=== PATIENT | male | born 1980 | race Caucasian/White ===

== ENCOUNTER 2020-07-15 01:36 | Emergency (ER) | payer OTHER ==
[~2020-07-15] VITALS: Ht 157.5 cm; Wt 78.0 kg
[~2020-07-15 01:36] MED LIST: METF-162 PO
[2020-07-15] MEDS ORDERED: ONDANSETRON 2MG/ML, 2ML ONE (02:00)
[2020-07-15] MEDS ORDERED: ONDANSETRON 2MG/ML, 2ML IVPush ONE (02:00)
[2020-07-15] MEDS ORDERED: KETOROLAC 30 MG/1 ML ONE (02:00)
[2020-07-15] MEDS ORDERED: MORPHINE SULFATE 4 MG/ML, 1ML ONE ×2 (02:00→03:03)
[2020-07-15] MEDS ORDERED: KETOROLAC 30 MG/1 ML IVPush ONE (02:00)
[2020-07-15] MEDS: MORPHINE SULFATE 4 MG/ML, 1ML IVPush PRN ×2 (02:16→03:05)
[2020-07-15 02:47] LABS: MICROSCOPIC INDICATED
[2020-07-15 02:48] LABS: ALBUMIN 4.3 g/dL (3.4-5.0); ANION GAP 6 mmol/L (5-15); BASOPHILS % (AUTO) 1 % (0-1); CHLORIDE 110 mmol/L (98-107); CREATININE 0.89 mg/dL (0.7-1.3); EOSINOPHILS % (AUTO) 2 % (1-7); LYMPHOCYTES % (AUTO) 34 % (22-44); MEAN CORPUSCULAR HEMOGLOBIN 33.2 pg (27.5-34.5); MEAN CORPUSCULAR HGB CONC 34.6 g/dL (33.2-36.2); MEAN PLATELET VOLUME 7.6 fL (7.4-10.4); MONOCYTES % (AUTO) 7 % (2-9); NEUTROPHILS % (AUTO) 57 % (42-75); PLATELET COUNT 314 x10^3/uL (130-400); RED BLOOD COUNT 4.66 x10^6/uL (4.38-5.82)
--- NOTE | 2020-07-15 03:27 | NUR ---
PT "STATES PAIN CAME ON AT MIDNIGHT 1010 PAIN." NEVER HAD THIS PAIN BEFORE. STATES HE VOMITED ONCE IN THE LOBBY.
[2020-07-15 03:42] VITALS: BP 106/64
--- NOTE | 2020-07-15 04:16 | NUR ---
Patient given discharge instructions and they have confirmed that they understand the instructions. Patient ambulatory with steady gait. No quesiton at time at discharge.
== END 2020-07-15 04:13 | disposition home or self-care (01) ==
LOC: ED 04:01
DX: N20.2 Calculus of kidney with calculus of ureter (principal)
CPT/HCPCS: 36415; 74176; 80048; 81001; 82040; 85025; 96374; 96375; 96376; 99284; J1885; J2270; J2405

== ENCOUNTER 2020-10-30 21:14 | Inpatient (IN) | payer OTHER ==
[~2020-10-30] VITALS: Ht 157.5 cm; Wt 73.4 kg
[2020-10-30] MEDS ORDERED: DEXAMETHASONE 4 MG/ML, 1ML PO ONE (21:30)
--- NOTE | 2020-10-30 22:52 | NUR ---
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
[2020-10-30 23:15] LABS: BASOPHILS % (AUTO) 1 % (0-1); EOSINOPHILS % (AUTO) 0 % (1-7); LYMPHOCYTES % (AUTO) 20 % (22-44); MEAN CORPUSCULAR HEMOGLOBIN 33.8 pg (27.5-34.5); MEAN CORPUSCULAR HGB CONC 35.6 g/dL (33.2-36.2); MEAN PLATELET VOLUME 7.4 fL (7.4-10.4); MONOCYTES % (AUTO) 8 % (2-9); NEUTROPHILS % (AUTO) 71 % (42-75); PLATELET COUNT 200 x10^3/uL (130-400); RED BLOOD COUNT 4.82 x10^6/uL (4.38-5.82); RED CELL DISTRIBUTION WIDTH 12.9 % (9.4-14.8)
[2020-10-30] MEDS ORDERED: DEXAMETHASONE 4 MG/ML, 5ML ONE (23:15)
[2020-10-30] MEDS ORDERED: ACETAMINOPHEN 500 MG TABLET ONE (23:16)
--- NOTE | 2020-10-30 23:21 | NUR ---
PT AMBULATED HALLWAY WITHOUT OXYGEN. OXYGEN LEVEL 88%. WHEN PT IS SITTING ON GURNEY, OXYGEN LEVEL 90%. PT CONNECTED TO ALL MONITORING. CALL LIGHT IN REACH. MEDS ADMIN PER MAY.
[2020-10-30 23:22] LABS: CHLORIDE 101 mmol/L (98-107)
[2020-10-30 23:26] LABS: ALBUMIN 3.2 g/dL (3.4-5.0); ANION GAP 9 mmol/L (5-15); CALCIUM 8.6 mg/dL (8.5-10.1); CREATININE 0.69 mg/dL (0.7-1.3)
[2020-10-30] MEDS ORDERED: ACETAMINOPHEN 500 MG TABLET PO ONE (23:30)
--- NOTE | 2020-10-30 23:31 | NUR ---
ALL RESULTS ARE BACK AT THIS TIME. CHART UP FOR RECHECK.
--- NOTE | 2020-10-31 00:11 | NUR ---
ALMAS HAS BEED AT BEDSIDE TO UPDATE PT ON POC. PT TO BE DC WITH HOME OXYGEN.
--- NOTE | 2020-10-31 00:35 | NUR ---
called [facility] [employer] and dme to set up home 02. will hear call back from tech in 15 min
--- NOTE | 2020-10-31 01:39 | NUR ---
PT RESTING COMFORTABLY ON GURNEY. NO RESP DISTRESS. SPOUSE AT BEDSIDE. AWAITING HOME OXYGEN.
--- NOTE | 2020-10-31 01:49 | NUR ---
RECIEVED REPORT FROM HEIDI ANNE.
--- NOTE | 2020-10-31 01:56 | NUR ---
PROVIDER REPORTED O2 SATURATIONS AT 86%.
[2020-10-31] MEDS ORDERED: CEFTRIAXONE 1,000 MG in DEXTROSE 5% 50 ML IVPB ONE (02:00)
[2020-10-31] MEDS ORDERED: DOXYCYCLINE 100 MG in DEXTROSE 5% 250 ML IV SCH (02:00)
--- NOTE | 2020-10-31 02:44 | NUR ---
Pt to be admitted to MEDICAL, room 365. Report called to JANETH GORDON.
[2020-10-31 03:04] VITALS: BP 102/67
[2020-10-31] MEDS ORDERED: LABETALOL 5MG/ML, 20ML IVPush PRN (05:00)
[2020-10-31] MEDS ORDERED: ONDANSETRON 2MG/ML, 2ML IVPush PRN (05:00)
[2020-10-31] MEDS ORDERED: POLYETHYLENE GLYCOL 17 GM PACKET PO PRN (05:00)
[2020-10-31] MEDS ORDERED: PHARMACY MAY ADJ FOR RENAL FX MC PRN (05:00)
[2020-10-31] MEDS: ENOXAPARIN 40 MG/0.4 ML SQ SCH (05:08)
[2020-10-31] MEDS: DEXAMETHASONE 4 MG/ML, 1ML IVPush SCH ×4 (05:08→23:33)
[2020-10-31 07:24] LABS: BASOPHILS % (AUTO) 0 % (0-1); EOSINOPHILS % (AUTO) 0 % (1-7); LYMPHOCYTES % (AUTO) 19 % (22-44); MEAN CORPUSCULAR HEMOGLOBIN 33.2 pg (27.5-34.5); MEAN CORPUSCULAR HGB CONC 34.4 g/dL (33.2-36.2); MEAN PLATELET VOLUME 7.1 fL (7.4-10.4); MONOCYTES % (AUTO) 5 % (2-9); NEUTROPHILS % (AUTO) 76 % (42-75); PLATELET COUNT 197 x10^3/uL (130-400); RED BLOOD COUNT 5.12 x10^6/uL (4.38-5.82); RED CELL DISTRIBUTION WIDTH 12.9 % (9.4-14.8)
[2020-10-31 07:31] LABS: ANION GAP 5 mmol/L (5-15); CALCIUM 9.6 mg/dL (8.5-10.1); CHLORIDE 104 mmol/L (98-107)
[2020-10-31 07:33] LABS: CREATININE 0.72 mg/dL (0.7-1.3)
[2020-10-31 08:33] VITALS: BP 118/75
[2020-10-31] MEDS: ASCORBIC ACID 500 MG TABLET PO SCH ×2 (08:35→19:41)
[2020-10-31] MEDS: ZINC SULFATE 220 MG CAPSULE PO SCH (08:35)
[2020-10-31] MEDS: FAMOTIDINE 20 MG TABLET PO SCH ×2 (08:35→19:41)
[2020-10-31 11:16] VITALS: BP 116/75
[2020-10-31 14:00] VITALS: BP 117/76
[2020-10-31 19:32] VITALS: BP 121/77
[2020-10-31 23:30] VITALS: BP 113/70
[2020-10-31] MEDS: BENZONATATE 100 MG CAPSULE PO PRN (23:37)
[2020-11-01] MEDS: MELATONIN 5 MG TABLET PO PRN (03:17)
[2020-11-01] MEDS: DEXAMETHASONE 4 MG/ML, 1ML IVPush SCH ×4 (04:25→23:47)
[2020-11-01] MEDS: ENOXAPARIN 40 MG/0.4 ML SQ SCH (04:26)
[2020-11-01] MEDS: CEFTRIAXONE 1,000 MG in DEXTROSE 5% 50 ML IVPB SCH (04:26)
[2020-11-01 07:58] VITALS: BP 117/72
[2020-11-01 08:10] LABS: BASOPHILS % (AUTO) 0 % (0-1); EOSINOPHILS % (AUTO) 0 % (1-7); LYMPHOCYTES % (AUTO) 6 % (22-44); MEAN CORPUSCULAR HEMOGLOBIN 32.8 pg (27.5-34.5); MEAN CORPUSCULAR HGB CONC 34.2 g/dL (33.2-36.2); MEAN PLATELET VOLUME 7.4 fL (7.4-10.4); MONOCYTES % (AUTO) 6 % (2-9); NEUTROPHILS % (AUTO) 88 % (42-75); PLATELET COUNT 272 x10^3/uL (130-400); RED BLOOD COUNT 4.73 x10^6/uL (4.38-5.82); RED CELL DISTRIBUTION WIDTH 12.6 % (9.4-14.8)
[2020-11-01 08:24] LABS: ANION GAP 8 mmol/L (5-15); CALCIUM 9.1 mg/dL (8.5-10.1); CHLORIDE 104 mmol/L (98-107)
[2020-11-01 08:35] LABS: ALANINE AMINOTRANSFERASE 49 U/L (12-78); ALKALINE PHOSPHATASE 61 U/L (45-117); BILIRUBIN,TOTAL 0.3 mg/dL (0.2-1.0); CREATININE 0.76 mg/dL (0.7-1.3); TOTAL PROTEIN 7.4 g/dL (6.4-8.2)
[2020-11-01] MEDS: ASCORBIC ACID 500 MG TABLET PO SCH ×2 (09:23→19:30)
[2020-11-01] MEDS: FAMOTIDINE 20 MG TABLET PO SCH ×2 (09:23→19:30)
[2020-11-01] MEDS: ZINC SULFATE 220 MG CAPSULE PO SCH (09:23)
[2020-11-01] MEDS: BENZONATATE 100 MG CAPSULE PO PRN ×2 (12:28→20:07)
[2020-11-01 12:53] VITALS: BP 120/79
[2020-11-01 19:22] VITALS: BP 115/73
[2020-11-01 23:49] VITALS: BP 127/73
[2020-11-02 00:20] VITALS: BP 127/73
[2020-11-02] MEDS: DEXAMETHASONE 4 MG/ML, 1ML IVPush SCH ×3 (04:16→17:13)
[2020-11-02] MEDS: CEFTRIAXONE 1,000 MG in DEXTROSE 5% 50 ML IVPB SCH (04:16)
[2020-11-02] MEDS: BENZONATATE 100 MG CAPSULE PO PRN ×3 (04:16→19:55)
[2020-11-02] MEDS: ENOXAPARIN 40 MG/0.4 ML SQ SCH (04:16)
[2020-11-02 05:49] LABS: MEAN CORPUSCULAR HEMOGLOBIN 33.3 pg (27.5-34.5); MEAN CORPUSCULAR HGB CONC 34.6 g/dL (33.2-36.2); MEAN PLATELET VOLUME 7.5 fL (7.4-10.4); PLATELET COUNT 320 x10^3/uL (130-400); RED BLOOD COUNT 4.56 x10^6/uL (4.38-5.82); RED CELL DISTRIBUTION WIDTH 12.9 % (9.4-14.8)
[2020-11-02 06:19] LABS: ALBUMIN 2.7 g/dL (3.4-5.0); ANION GAP 5 mmol/L (5-15); CHLORIDE 104 mmol/L (98-107)
[2020-11-02 06:21] LABS: <PLATELET ESTIMATE> ADEQUATE; <PLT MORPHOLOGY> NORMAL PLT MORPH; ANISOCYTOSIS 1+; BAND#(MANUAL) 0.18 x10^3/uL; BANDS%(MANUAL) 1 % (0-7); LYMPH#(MANUAL) 1.27 x10^3/uL (1-3.4); LYMPHS% (MANUAL) 7 % (22-44); MONOS#(MANUAL) 0.91 x10^3/uL (0.3-2.7); MONOS% (MANUAL) 5 % (2-9); SEG#(MANUAL) 15.75 x10^3/uL (1.8-6.8); SEGS% (MANUAL) 87 % (42-75); TEAR DROPS 1+
[2020-11-02 06:22] LABS: ALANINE AMINOTRANSFERASE 52 U/L (12-78); ALKALINE PHOSPHATASE 59 U/L (45-117); BILIRUBIN,TOTAL 0.4 mg/dL (0.2-1.0); CREATININE 0.78 mg/dL (0.7-1.3); TOTAL PROTEIN 7.4 g/dL (6.4-8.2)
[2020-11-02 08:43] VITALS: BP 109/67
[2020-11-02] MEDS: ASCORBIC ACID 500 MG TABLET PO SCH ×2 (08:46→19:41)
[2020-11-02] MEDS: ZINC SULFATE 220 MG CAPSULE PO SCH (08:46)
[2020-11-02] MEDS: FAMOTIDINE 20 MG TABLET PO SCH ×2 (08:46→19:41)
[2020-11-02] MEDS: ACETAMINOPHEN 325 MG TABLET PO PRN (10:34)
[2020-11-02 13:51] VITALS: BP 128/81
[2020-11-02 19:06] VITALS: BP 114/68
[2020-11-03] MEDS: DEXAMETHASONE 4 MG/ML, 1ML IVPush SCH ×3 (00:15→08:18)
[2020-11-03 00:50] VITALS: BP 118/73
[2020-11-03] MEDS: CEFTRIAXONE 1,000 MG in DEXTROSE 5% 50 ML IVPB SCH (03:52)
[2020-11-03] MEDS: ENOXAPARIN 40 MG/0.4 ML SQ SCH (05:51)
[2020-11-03 06:27] LABS: BASOPHILS % (AUTO) 0 % (0-1); EOSINOPHILS % (AUTO) 0 % (1-7); LYMPHOCYTES % (AUTO) 4 % (22-44); MEAN CORPUSCULAR HEMOGLOBIN 33.2 pg (27.5-34.5); MEAN CORPUSCULAR HGB CONC 34.5 g/dL (33.2-36.2); MEAN PLATELET VOLUME 7.4 fL (7.4-10.4); MONOCYTES % (AUTO) 5 % (2-9); NEUTROPHILS % (AUTO) 92 % (42-75); PLATELET COUNT 352 x10^3/uL (130-400); RED BLOOD COUNT 4.64 x10^6/uL (4.38-5.82)
[2020-11-03 06:38] LABS: ALBUMIN 2.7 g/dL (3.4-5.0); ANION GAP 7 mmol/L (5-15); CALCIUM 8.8 mg/dL (8.5-10.1); CHLORIDE 105 mmol/L (98-107)
[2020-11-03] MEDS: BENZONATATE 100 MG CAPSULE PO PRN ×3 (06:42→20:26)
[2020-11-03 06:46] LABS: ALANINE AMINOTRANSFERASE 58 U/L (12-78); ALKALINE PHOSPHATASE 61 U/L (45-117); BILIRUBIN,TOTAL 0.5 mg/dL (0.2-1.0); TOTAL PROTEIN 7.2 g/dL (6.4-8.2)
[2020-11-03] MEDS ORDERED: REMDESIVIR 200 MG in SODIUM CHLORIDE 0.9% 250 ML IVPB ONE (07:00)
[2020-11-03] MEDS: FAMOTIDINE 20 MG TABLET PO SCH ×2 (08:18→20:10)
[2020-11-03] MEDS: ZINC SULFATE 220 MG CAPSULE PO SCH (08:18)
[2020-11-03] MEDS: ASCORBIC ACID 500 MG TABLET PO SCH ×2 (08:18→20:11)
[2020-11-03 09:59] VITALS: BP 120/75
[2020-11-03 12:53] VITALS: BP 119/72
[2020-11-03] MEDS: ACETAMINOPHEN 325 MG TABLET PO PRN (17:30)
[2020-11-03 19:24] VITALS: BP 112/70
[2020-11-03] MEDS: MELATONIN 5 MG TABLET PO PRN (20:11)
[2020-11-04 00:27] VITALS: BP 108/72
[2020-11-04] MEDS: CEFTRIAXONE 1,000 MG in DEXTROSE 5% 50 ML IVPB SCH (04:24)
[2020-11-04] MEDS: ENOXAPARIN 40 MG/0.4 ML SQ SCH (04:24)
[2020-11-04 05:47] LABS: BASOPHILS % (AUTO) 0 % (0-1); EOSINOPHILS % (AUTO) 0 % (1-7); LYMPHOCYTES % (AUTO) 5 % (22-44); MEAN CORPUSCULAR HEMOGLOBIN 32.5 pg (27.5-34.5); MEAN CORPUSCULAR HGB CONC 33.8 g/dL (33.2-36.2); MEAN PLATELET VOLUME 7.5 fL (7.4-10.4); MONOCYTES % (AUTO) 8 % (2-9); NEUTROPHILS % (AUTO) 87 % (42-75); PLATELET COUNT 374 x10^3/uL (130-400); RED BLOOD COUNT 4.58 x10^6/uL (4.38-5.82); RED CELL DISTRIBUTION WIDTH 12.7 % (9.4-14.8)
[2020-11-04 06:02] LABS: ALBUMIN 2.3 g/dL (3.4-5.0); ANION GAP 7 mmol/L (5-15); CALCIUM 8.6 mg/dL (8.5-10.1); CHLORIDE 106 mmol/L (98-107)
[2020-11-04 06:29] LABS: ALANINE AMINOTRANSFERASE 44 U/L (12-78); ALKALINE PHOSPHATASE 58 U/L (45-117); BILIRUBIN,TOTAL 0.7 mg/dL (0.2-1.0); CREATININE 0.55 mg/dL (0.7-1.3); TOTAL PROTEIN 6.9 g/dL (6.4-8.2)
[2020-11-04 06:40] VITALS: BP 115/74
[2020-11-04] MEDS: REMDESIVIR 100 MG in SODIUM CHLORIDE 0.9% 250 ML IVPB SCH (06:50)
[2020-11-04] MEDS: ACETAMINOPHEN 325 MG TABLET PO PRN (09:57)
[2020-11-04] MEDS: DEXAMETHASONE 4 MG/ML, 1ML IVPush SCH (09:57)
[2020-11-04] MEDS: BENZONATATE 100 MG CAPSULE PO PRN ×2 (09:57→20:32)
[2020-11-04] MEDS: ZINC SULFATE 220 MG CAPSULE PO SCH (09:57)
[2020-11-04] MEDS: FAMOTIDINE 20 MG TABLET PO SCH ×2 (09:57→20:32)
[2020-11-04] MEDS: ASCORBIC ACID 500 MG TABLET PO SCH ×2 (10:23→20:32)
[2020-11-04 12:00] LABS: ALANINE AMINOTRANSFERASE 41 U/L (12-78); ALBUMIN 2.5 g/dL (3.4-5.0); ANION GAP 6 mmol/L (5-15); CALCIUM 8.7 mg/dL (8.5-10.1); CHLORIDE 107 mmol/L (98-107); CREATININE 0.59 mg/dL (0.7-1.3)
[2020-11-04 12:03] LABS: ALKALINE PHOSPHATASE 56 U/L (45-117); BILIRUBIN,TOTAL 0.5 mg/dL (0.2-1.0); TOTAL PROTEIN 6.9 g/dL (6.4-8.2)
[2020-11-04 12:28] VITALS: BP 118/76
[2020-11-04 20:26] VITALS: BP 127/81
[2020-11-04] MEDS: MELATONIN 5 MG TABLET PO PRN (20:32)
[2020-11-05 01:07] VITALS: BP 116/77
[2020-11-05] MEDS: ENOXAPARIN 40 MG/0.4 ML SQ SCH (05:17)
[2020-11-05 05:20] LABS: RED CELL DISTRIBUTION WIDTH 12.6 % (9.4-14.8)
[2020-11-05 05:22] LABS: BASOPHILS % (AUTO) 0 % (0-1); EOSINOPHILS % (AUTO) 0 % (1-7); LYMPHOCYTES % (AUTO) 7 % (22-44); MEAN CORPUSCULAR HEMOGLOBIN 33.3 pg (27.5-34.5); MEAN CORPUSCULAR HGB CONC 34.3 g/dL (33.2-36.2); MEAN PLATELET VOLUME 7.9 fL (7.4-10.4); MONOCYTES % (AUTO) 8 % (2-9); NEUTROPHILS % (AUTO) 84 % (42-75); PLATELET COUNT 405 x10^3/uL (130-400); RED BLOOD COUNT 4.85 x10^6/uL (4.38-5.82)
[2020-11-05 05:29] LABS: ALBUMIN 2.5 g/dL (3.4-5.0); ANION GAP 9 mmol/L (5-15); CALCIUM 8.7 mg/dL (8.5-10.1); CHLORIDE 104 mmol/L (98-107)
[2020-11-05 05:34] LABS: ALANINE AMINOTRANSFERASE 46 U/L (12-78); ALKALINE PHOSPHATASE 59 U/L (45-117); BILIRUBIN,TOTAL 0.6 mg/dL (0.2-1.0); CREATININE 0.57 mg/dL (0.7-1.3); TOTAL PROTEIN 7.1 g/dL (6.4-8.2)
[2020-11-05] MEDS: ASCORBIC ACID 500 MG TABLET PO SCH ×2 (07:15→20:07)
[2020-11-05] MEDS: BENZONATATE 100 MG CAPSULE PO PRN ×2 (07:15→20:07)
[2020-11-05] MEDS: ZINC SULFATE 220 MG CAPSULE PO SCH (07:15)
[2020-11-05] MEDS: DEXAMETHASONE 4 MG/ML, 1ML IVPush SCH (07:15)
[2020-11-05] MEDS: REMDESIVIR 100 MG in SODIUM CHLORIDE 0.9% 250 ML IVPB SCH (07:15)
[2020-11-05] MEDS: FAMOTIDINE 20 MG TABLET PO SCH ×2 (07:15→20:07)
[2020-11-05] MEDS: ACETAMINOPHEN 325 MG TABLET PO PRN ×2 (07:16→20:07)
[2020-11-05 11:01] LABS: ALANINE AMINOTRANSFERASE 43 U/L (12-78); ALBUMIN 2.5 g/dL (3.4-5.0); ANION GAP 7 mmol/L (5-15); CALCIUM 8.5 mg/dL (8.5-10.1); CHLORIDE 106 mmol/L (98-107); CREATININE 0.64 mg/dL (0.7-1.3)
[2020-11-05 11:04] LABS: ALKALINE PHOSPHATASE 61 U/L (45-117); BILIRUBIN,TOTAL 0.5 mg/dL (0.2-1.0); TOTAL PROTEIN 7.1 g/dL (6.4-8.2)
[2020-11-05 15:51] VITALS: BP 112/69
[2020-11-05 20:04] VITALS: BP 111/73
[2020-11-05] MEDS: MELATONIN 5 MG TABLET PO PRN (20:08)
[2020-11-06 00:03] VITALS: BP 121/76
[2020-11-06] MEDS: ENOXAPARIN 40 MG/0.4 ML SQ SCH (05:17)
[2020-11-06] MEDS: REMDESIVIR 100 MG in SODIUM CHLORIDE 0.9% 250 ML IVPB SCH (06:33)
[2020-11-06 06:39] LABS: HCT (SEDRATE) 47.2 % (39.2-51.8); MEAN CORPUSCULAR HEMOGLOBIN 32.8 pg (27.5-34.5); MEAN CORPUSCULAR HGB CONC 34.2 g/dL (33.2-36.2); MEAN PLATELET VOLUME 6.8 fL (7.4-10.4); PLATELET COUNT 487 x10^3/uL (130-400); RED BLOOD COUNT 4.92 x10^6/uL (4.38-5.82); RED CELL DISTRIBUTION WIDTH 12.9 % (9.4-14.8)
[2020-11-06 06:53] LABS: ALANINE AMINOTRANSFERASE 55 U/L (12-78); ALBUMIN 2.2 g/dL (3.4-5.0); ANION GAP 7 mmol/L (5-15); CALCIUM 8.3 mg/dL (8.5-10.1); CHLORIDE 103 mmol/L (98-107); CREATININE 0.69 mg/dL (0.7-1.3)
[2020-11-06 07:00] LABS: ALKALINE PHOSPHATASE 57 U/L (45-117); BILIRUBIN,TOTAL 0.5 mg/dL (0.2-1.0); TOTAL PROTEIN 6.9 g/dL (6.4-8.2)
[2020-11-06 07:26] LABS: <PLATELET ESTIMATE> INCREASED; <PLT MORPHOLOGY> NORMAL PLT MORPH; <RBC MORPHOLOGY> NORMAL; BAND#(MANUAL) 0.25 x10^3/uL; BANDS%(MANUAL) 2 % (0-7); EOS#(MANUAL) 0.13 x10^3/uL (0.0-0.4); EOS% (MANUAL) 1 % (1-7); LYMPHS% (MANUAL) 11 % (22-44); METAMYELOCYTES# (MANUAL) 0.13 x10^3/uL (0-0); METAMYELOCYTES% (MANUAL) 1 % (0-1); MONOS#(MANUAL) 1.52 x10^3/uL (0.3-2.7); MONOS% (MANUAL) 12 % (2-9); MYELOCYTES# (MANUAL) 0.25 x10^3/uL (0-0); MYELOCYTES% (MANUAL) 2 % (0-0); SEG#(MANUAL) 9.02 x10^3/uL (1.8-6.8); SEGS% (MANUAL) 71 % (42-75)
[2020-11-06 07:38] VITALS: BP 111/69
[2020-11-06] MEDS: DEXAMETHASONE 4 MG/ML, 1ML IVPush SCH (09:14)
[2020-11-06] MEDS: FAMOTIDINE 20 MG TABLET PO SCH ×2 (09:15→20:33)
[2020-11-06] MEDS: ZINC SULFATE 220 MG CAPSULE PO SCH (09:15)
[2020-11-06] MEDS: ASCORBIC ACID 500 MG TABLET PO SCH ×2 (09:15→20:32)
[2020-11-06 13:01] VITALS: BP 108/68
[2020-11-06 19:42] VITALS: BP 107/67
[2020-11-06] MEDS: BENZONATATE 100 MG CAPSULE PO PRN (20:32)
[2020-11-06] MEDS: MELATONIN 5 MG TABLET PO PRN (20:33)
[2020-11-07 01:42] VITALS: BP 112/69
[2020-11-07 04:54] LABS: BASOPHILS % (AUTO) 0 % (0-1); EOSINOPHILS % (AUTO) 0 % (1-7); LYMPHOCYTES % (AUTO) 10 % (22-44); MEAN CORPUSCULAR HEMOGLOBIN 33.3 pg (27.5-34.5); MEAN PLATELET VOLUME 6.8 fL (7.4-10.4); MONOCYTES % (AUTO) 9 % (2-9); NEUTROPHILS % (AUTO) 81 % (42-75); PLATELET COUNT 534 x10^3/uL (130-400); RED BLOOD COUNT 4.79 x10^6/uL (4.38-5.82); RED CELL DISTRIBUTION WIDTH 12.7 % (9.4-14.8)
[2020-11-07 05:02] LABS: ALBUMIN 2.4 g/dL (3.4-5.0); ANION GAP 6 mmol/L (5-15); CALCIUM 8.3 mg/dL (8.5-10.1); CHLORIDE 106 mmol/L (98-107)
[2020-11-07 05:20] LABS: ALANINE AMINOTRANSFERASE 49 U/L (12-78); ALKALINE PHOSPHATASE 55 U/L (45-117); BILIRUBIN,TOTAL 0.5 mg/dL (0.2-1.0); CREATININE 0.56 mg/dL (0.7-1.3); TOTAL PROTEIN 6.6 g/dL (6.4-8.2)
[2020-11-07] MEDS: ENOXAPARIN 40 MG/0.4 ML SQ SCH ×2 (05:22→16:21)
[2020-11-07] MEDS: REMDESIVIR 100 MG in SODIUM CHLORIDE 0.9% 250 ML IVPB SCH (06:34)
[2020-11-07 08:30] VITALS: BP 111/71
[2020-11-07] MEDS: ASCORBIC ACID 500 MG TABLET PO SCH ×2 (09:32→20:58)
[2020-11-07] MEDS: BENZONATATE 100 MG CAPSULE PO PRN (09:32)
[2020-11-07] MEDS: ZINC SULFATE 220 MG CAPSULE PO SCH (09:32)
[2020-11-07] MEDS: FAMOTIDINE 20 MG TABLET PO SCH ×2 (09:33→20:58)
[2020-11-07] MEDS: DEXAMETHASONE 4 MG/ML, 1ML IVPush SCH (09:33)
[2020-11-07 10:54] LABS: FIO2 100 %
[2020-11-07 10:58] VITALS: BP 116/68
[2020-11-07 11:01] VITALS: BP 112/63
[2020-11-07] MEDS: FUROSEMIDE 20 MG/2 ML IV SCH (16:21)
[2020-11-08 04:35] LABS: BASOPHILS % (AUTO) 0 % (0-1); EOSINOPHILS % (AUTO) 1 % (1-7); LYMPHOCYTES % (AUTO) 8 % (22-44); MEAN CORPUSCULAR HEMOGLOBIN 33.2 pg (27.5-34.5); MEAN CORPUSCULAR HGB CONC 34.7 g/dL (33.2-36.2); MONOCYTES % (AUTO) 10 % (2-9); NEUTROPHILS % (AUTO) 81 % (42-75); PLATELET COUNT 534 x10^3/uL (130-400); RED BLOOD COUNT 4.77 x10^6/uL (4.38-5.82); RED CELL DISTRIBUTION WIDTH 13.1 % (9.4-14.8)
[2020-11-08] MEDS: FUROSEMIDE 20 MG/2 ML IV SCH (04:41)
[2020-11-08] MEDS: ENOXAPARIN 40 MG/0.4 ML SQ SCH ×2 (04:41→17:50)
[2020-11-08 04:45] LABS: ALANINE AMINOTRANSFERASE 46 U/L (12-78); ALBUMIN 2.3 g/dL (3.4-5.0); ANION GAP 6 mmol/L (5-15); CALCIUM 8.6 mg/dL (8.5-10.1); CHLORIDE 103 mmol/L (98-107)
[2020-11-08 04:47] LABS: ALKALINE PHOSPHATASE 57 U/L (45-117); BILIRUBIN,TOTAL 0.6 mg/dL (0.2-1.0); TOTAL PROTEIN 6.9 g/dL (6.4-8.2)
[2020-11-08 04:53] LABS: O2 FLOW 100 L/min
[2020-11-08] MEDS ORDERED: POTASSIUM CHLORIDE 20 MEQ TAB.ER.PRT PO ONE (06:30)
[2020-11-08] MEDS: CEFTRIAXONE 2 GM in DEXTROSE 5% 50 ML IVPB SCH (06:44)
[2020-11-08] MEDS ORDERED: ASCORBIC ACID 250 MG TAB ONE (07:59)
[2020-11-08] MEDS: THIAMINE 100MG TABLET PO SCH (08:24)
[2020-11-08] MEDS: FUROSEMIDE 40 MG/4 ML IV SCH ×2 (08:24→17:50)
[2020-11-08] MEDS: AZITHROMYCIN 500 MG TABLET PO SCH (08:24)
[2020-11-08] MEDS: ASCORBIC ACID 500 MG TABLET PO SCH ×2 (08:24→20:54)
[2020-11-08] MEDS: CHOLECALCIFEROL 5,000u TAB PO SCH (08:24)
[2020-11-08] MEDS: DEXAMETHASONE 4 MG/ML, 1ML IVPush SCH (08:24)
[2020-11-08] MEDS: ZINC SULFATE 220 MG CAPSULE PO SCH (08:24)
[2020-11-08] MEDS: FAMOTIDINE 20 MG TABLET PO SCH ×2 (08:24→20:54)
[2020-11-09 04:19] LABS: ANION GAP 7 mmol/L (5-15); CALCIUM 8.8 mg/dL (8.5-10.1); CHLORIDE 98 mmol/L (98-107); CREATININE 0.69 mg/dL (0.7-1.3)
[2020-11-09] MEDS: ENOXAPARIN 40 MG/0.4 ML SQ SCH ×2 (05:56→17:16)
[2020-11-09] MEDS: CEFTRIAXONE 2 GM in DEXTROSE 5% 50 ML IVPB SCH (06:10)
[2020-11-09] MEDS: DEXAMETHASONE 4 MG/ML, 1ML IVPush SCH (08:45)
[2020-11-09] MEDS: CHOLECALCIFEROL 5,000u TAB PO SCH (08:45)
[2020-11-09] MEDS: FUROSEMIDE 40 MG/4 ML IV SCH ×2 (08:45→17:16)
[2020-11-09] MEDS: THIAMINE 100MG TABLET PO SCH (08:45)
[2020-11-09] MEDS: BENZONATATE 100 MG CAPSULE PO PRN (08:46)
[2020-11-09] MEDS: ASCORBIC ACID 500 MG TABLET PO SCH ×2 (08:46→21:42)
[2020-11-09] MEDS: AZITHROMYCIN 500 MG TABLET PO SCH (08:46)
[2020-11-09] MEDS: ZINC SULFATE 220 MG CAPSULE PO SCH (08:48)
[2020-11-09] MEDS: FAMOTIDINE 20 MG TABLET PO SCH ×2 (08:48→21:42)
[2020-11-10] MEDS: ENOXAPARIN 40 MG/0.4 ML SQ SCH ×2 (04:13→16:52)
[2020-11-10] MEDS: CEFTRIAXONE 2 GM in DEXTROSE 5% 50 ML IVPB SCH (04:14)
[2020-11-10 04:21] LABS: MEAN CORPUSCULAR HEMOGLOBIN 32.5 pg (27.5-34.5); MEAN CORPUSCULAR HGB CONC 34.3 g/dL (33.2-36.2); MEAN PLATELET VOLUME 6.6 fL (7.4-10.4); PLATELET COUNT 543 x10^3/uL (130-400); RED BLOOD COUNT 4.82 x10^6/uL (4.38-5.82); RED CELL DISTRIBUTION WIDTH 12.7 % (9.4-14.8)
[2020-11-10 04:30] LABS: ANION GAP 6 mmol/L (5-15); CALCIUM 8.9 mg/dL (8.5-10.1); CHLORIDE 98 mmol/L (98-107)
[2020-11-10 04:52] LABS: BAND#(MANUAL) 0.37 x10^3/uL; BANDS%(MANUAL) 2 % (0-7); LYMPH#(MANUAL) 0.74 x10^3/uL (1-3.4); LYMPHS% (MANUAL) 4 % (22-44); METAMYELOCYTES# (MANUAL) 0.18 x10^3/uL (0-0); METAMYELOCYTES% (MANUAL) 1 % (0-1); MONOS#(MANUAL) 2.76 x10^3/uL (0.3-2.7); MONOS% (MANUAL) 15 % (2-9); MYELOCYTES# (MANUAL) 0.37 x10^3/uL (0-0); MYELOCYTES% (MANUAL) 2 % (0-0); SEG#(MANUAL) 13.98 x10^3/uL (1.8-6.8); SEGS% (MANUAL) 76 % (42-75)
[2020-11-10 04:53] LABS: <PLATELET ESTIMATE> INCREASED; <RBC MORPHOLOGY> NORMAL; PMNS WITH VACUOLES 1+; SMALL PLATELETS 1+; TOXIC GRAN 1+
[2020-11-10] MEDS ORDERED: ASCORBIC ACID 250 MG TAB ONE (07:58)
[2020-11-10] MEDS: AZITHROMYCIN 500 MG TABLET PO SCH (09:05)
[2020-11-10] MEDS: FAMOTIDINE 20 MG TABLET PO SCH ×2 (09:05→21:18)
[2020-11-10] MEDS: THIAMINE 100MG TABLET PO SCH (09:05)
[2020-11-10] MEDS: ASCORBIC ACID 500 MG TABLET PO SCH ×2 (09:06→21:18)
[2020-11-10] MEDS: CHOLECALCIFEROL 5,000u TAB PO SCH (09:06)
[2020-11-10] MEDS: FUROSEMIDE 40 MG/4 ML IV SCH ×2 (09:07→16:52)
[2020-11-10] MEDS: DEXAMETHASONE 4 MG/ML, 1ML IVPush SCH (09:07)
[2020-11-10 16:45] VITALS: BP 110/70
[2020-11-10 19:15] VITALS: BP 99/62
[2020-11-11 00:53] VITALS: BP 102/64
[2020-11-11] MEDS: CEFTRIAXONE 2 GM in DEXTROSE 5% 50 ML IVPB SCH (06:18)
[2020-11-11] MEDS: ENOXAPARIN 40 MG/0.4 ML SQ SCH ×2 (06:19→16:38)
[2020-11-11 06:54] LABS: BASOPHILS % (AUTO) 0 % (0-1); EOSINOPHILS % (AUTO) 0 % (1-7); LYMPHOCYTES % (AUTO) 10 % (22-44); MEAN CORPUSCULAR HEMOGLOBIN 32.6 pg (27.5-34.5); MEAN CORPUSCULAR HGB CONC 34.3 g/dL (33.2-36.2); MEAN PLATELET VOLUME 7.3 fL (7.4-10.4); MONOCYTES % (AUTO) 9 % (2-9); NEUTROPHILS % (AUTO) 80 % (42-75); PLATELET COUNT 505 x10^3/uL (130-400); RED BLOOD COUNT 4.81 x10^6/uL (4.38-5.82); RED CELL DISTRIBUTION WIDTH 12.6 % (9.4-14.8)
[2020-11-11 06:57] LABS: ANION GAP 4 mmol/L (5-15); CALCIUM 8.8 mg/dL (8.5-10.1); CHLORIDE 99 mmol/L (98-107)
[2020-11-11 06:58] LABS: CREATININE 1.05 mg/dL (0.7-1.3)
[2020-11-11] MEDS: FAMOTIDINE 20 MG TABLET PO SCH ×2 (07:38→21:02)
[2020-11-11] MEDS: FUROSEMIDE 40 MG/4 ML IV SCH ×2 (07:38→16:38)
[2020-11-11] MEDS: DEXAMETHASONE 4 MG/ML, 1ML IVPush SCH (07:38)
[2020-11-11] MEDS: AZITHROMYCIN 500 MG TABLET PO SCH (07:38)
[2020-11-11] MEDS: CHOLECALCIFEROL 5,000u TAB PO SCH (07:38)
[2020-11-11] MEDS: THIAMINE 100MG TABLET PO SCH (07:39)
[2020-11-11 07:45] VITALS: BP 105/68
[2020-11-11 20:00] VITALS: BP 115/70
[2020-11-12 02:00] VITALS: BP_SYST 115; BP_SYST 118; BP_DIAS 70; BP_DIAS 72
[2020-11-12] MEDS: ENOXAPARIN 40 MG/0.4 ML SQ SCH ×2 (05:30→16:56)
[2020-11-12 05:55] LABS: BASOPHILS % (AUTO) 0 % (0-1); EOSINOPHILS % (AUTO) 0 % (1-7); LYMPHOCYTES % (AUTO) 10 % (22-44); MEAN CORPUSCULAR HGB CONC 34.5 g/dL (33.2-36.2); MEAN PLATELET VOLUME 7.4 fL (7.4-10.4); MONOCYTES % (AUTO) 7 % (2-9); NEUTROPHILS % (AUTO) 82 % (42-75); PLATELET COUNT 489 x10^3/uL (130-400); RED CELL DISTRIBUTION WIDTH 12.7 % (9.4-14.8)
[2020-11-12 06:02] LABS: ANION GAP 6 mmol/L (5-15); CALCIUM 8.4 mg/dL (8.5-10.1); CHLORIDE 102 mmol/L (98-107)
[2020-11-12] MEDS: CEFTRIAXONE 2 GM in DEXTROSE 5% 50 ML IVPB SCH (06:02)
[2020-11-12 06:03] LABS: CREATININE 0.76 mg/dL (0.7-1.3)
[2020-11-12 08:00] VITALS: BP 119/74
[2020-11-12] MEDS: FUROSEMIDE 40 MG/4 ML IV SCH ×2 (08:14→16:56)
[2020-11-12] MEDS: DEXAMETHASONE 4 MG/ML, 1ML IVPush SCH (08:14)
[2020-11-12] MEDS: AZITHROMYCIN 500 MG TABLET PO SCH (08:15)
[2020-11-12] MEDS: THIAMINE 100MG TABLET PO SCH (08:15)
[2020-11-12] MEDS: FAMOTIDINE 20 MG TABLET PO SCH ×2 (08:15→20:11)
[2020-11-12] MEDS: CHOLECALCIFEROL 5,000u TAB PO SCH (08:15)
[2020-11-12 13:34] VITALS: BP 116/79
[2020-11-12 19:25] VITALS: BP 130/77
[2020-11-13 01:22] VITALS: BP 128/73
[2020-11-13] MEDS: ENOXAPARIN 40 MG/0.4 ML SQ SCH ×2 (06:04→17:20)
[2020-11-13] MEDS: CEFTRIAXONE 2 GM in DEXTROSE 5% 50 ML IVPB SCH (06:04)
[2020-11-13] MEDS: FUROSEMIDE 40 MG/4 ML IV SCH ×2 (07:58→17:20)
[2020-11-13] MEDS: THIAMINE 100MG TABLET PO SCH (07:59)
[2020-11-13] MEDS: FAMOTIDINE 20 MG TABLET PO SCH ×2 (07:59→21:02)
[2020-11-13] MEDS: AZITHROMYCIN 500 MG TABLET PO SCH (07:59)
[2020-11-13] MEDS: DEXAMETHASONE 4 MG/ML, 1ML IVPush SCH (07:59)
[2020-11-13] MEDS: CHOLECALCIFEROL 5,000u TAB PO SCH (07:59)
[2020-11-13 09:12] VITALS: BP 116/80
[2020-11-13 14:07] VITALS: BP 117/78
[2020-11-13 19:22] VITALS: BP 107/73
[2020-11-14 00:58] VITALS: BP 124/82
[2020-11-14] MEDS: ENOXAPARIN 40 MG/0.4 ML SQ SCH ×2 (06:08→17:00)
[2020-11-14] MEDS: CEFTRIAXONE 2 GM in DEXTROSE 5% 50 ML IVPB SCH (06:08)
[2020-11-14] MEDS: FUROSEMIDE 40 MG/4 ML IV SCH ×2 (07:47→18:06)
[2020-11-14] MEDS: DEXAMETHASONE 4 MG/ML, 1ML IVPush SCH (09:58)
[2020-11-14] MEDS: FAMOTIDINE 20 MG TABLET PO SCH ×2 (09:59→20:15)
[2020-11-14] MEDS: THIAMINE 100MG TABLET PO SCH (09:59)
[2020-11-14] MEDS: AZITHROMYCIN 500 MG TABLET PO SCH (09:59)
[2020-11-14] MEDS: CHOLECALCIFEROL 5,000u TAB PO SCH (09:59)
[2020-11-14 12:05] VITALS: BP 119/73
[2020-11-15 00:52] VITALS: BP 103/65
[2020-11-15] MEDS: ENOXAPARIN 40 MG/0.4 ML SQ SCH (05:00)
[2020-11-15] MEDS: CEFTRIAXONE 2 GM in DEXTROSE 5% 50 ML IVPB SCH (06:01)
[2020-11-15] MEDS ORDERED: CHOL500045 PO (08:15)
[2020-11-15] MEDS ORDERED: BENZ-17 PO (08:15)
[2020-11-15] MEDS: AZITHROMYCIN 500 MG TABLET PO SCH (08:50)
[2020-11-15] MEDS: DEXAMETHASONE 4 MG/ML, 1ML IVPush SCH (08:50)
[2020-11-15] MEDS: FUROSEMIDE 40 MG/4 ML IV SCH (08:50)
[2020-11-15] MEDS: THIAMINE 100MG TABLET PO SCH (08:50)
[2020-11-15] MEDS: FAMOTIDINE 20 MG TABLET PO SCH (08:51)
[2020-11-15] MEDS: CHOLECALCIFEROL 5,000u TAB PO SCH (08:51)
[2020-11-15 08:56] VITALS: BP 117/69
[2020-11-15 14:21] VITALS: BP 130/71
== END 2020-11-15 16:41 | disposition home or self-care (01) | DRG 871 ==
LOC: ED 23:05 → INTOOBSV 10-31 02:18 → EDIP 10-31 02:18 → OBSVTOIN 10-31 02:18 → 3N 10-31 03:03 → CCU 11-07 10:56 → 3N 11-10 16:35
PROVIDERS: ADMIT Internal Medicine; ATTEND Family Medicine
PROC: XW033E5 Introduction of Remdesivir Anti-infective into Peripheral Vein, Percutaneous Approach, New Technology Group 5 (ICD-10-PCS; principal; 2020-11-03)
DX: A41.89 Other specified sepsis (principal); J12.82 Pneumonia due to coronavirus disease 2019; J96.01 Acute respiratory failure with hypoxia; U07.1 COVID-19; E87.1 Hypo-osmolality and hyponatremia; D72.819 Decreased white blood cell count, unspecified; E66.9 Obesity, unspecified; F19.10 Other psychoactive substance abuse, uncomplicated; Z68.31 Body mass index [BMI] 31.0-31.9, adult; Z87.442 Personal history of urinary calculi
CPT/HCPCS: 36415; 36600; 71045; 80048; 80053; 82040; 82728; 82803; 83615; 83735; 84145; 85025; 85379; 85651; 86140; 87040; 87081; 96374; 96375; 99285; G0378; J0696; J1100; J1650; J1940; J7060; J7050